=== PATIENT | male | born 1970 | race American Indian/Alaskan Native ===

== ENCOUNTER 2020-04-07 22:28 | Observation (INO) | payer OTHER ==
[2020-04-07] MEDS ORDERED: SODIUM CHLORIDE 0.9% 1000 ML 1,000 ML IV ONE (23:14)
[2020-04-07] MEDS ORDERED: ONDANSETRON 4 MG/2 ML INJ IV ONE (23:14)
[2020-04-07] MEDS ORDERED: KETOROLAC 30 MG/1 ML INJ IV ONE (23:14)
[2020-04-07 23:36] LABS: Bilirubin,Urine NEG (Negative); Blood,Urine NEG (Negative); Color,Urine Yellow (Yellow); Mucus,Urine FEW /HPF; Protein,Urine <15 mg/dL mg/dL (Negative)
--- NOTE | 2020-04-07 23:48 | Event Note ---
ED Screening Note Date of service: 04/07/20 Time: 11:30 ED Screening Note: 49 yr old male presents to ED with c/o Lower abdominal pain x 2 weeks. He states his lower abd pain is worse when he urinates. He reports nausea today. He denies any diarrhea, bloody stool, constipation, hematuria, dysuria, testicular pain or swelling, fever or chills. He also c/o rash to trunk x 1 mth. This initial assessment/diagnostic orders/clinical plan/treatment(s) is/are subject to change based on patients health status, clinical progression and re- assessment by fellow clinical providers in the ED. Further treatment and workup at subsequent clinical providers discretion. Patient/guardian urged not to elope from the ED as their condition may be serious if not clinically assessed and managed. Initial orders include: CBC, CMP, lipase, magnesium, UA, CT
[2020-04-07 23:52] LABS: Alanine Aminotransferase 9 units/L (7-56); Albumin 3.7 g/dL (3.9-5); BUN/Creatinine Ratio 15; Blood Urea Nitrogen 12 mg/dL (9-20); Calcium 8.7 mg/dL (8.4-10.2); Hemolysis Index 4
[2020-04-07 23:57] LABS: Basophils # (Auto) 0.1 K/mm3 (0.0-0.1); Basophils % (Auto) 0.7 % (0.0-1.8); Eosinophils # (Auto) 0.3 K/mm3 (0.0-0.4); Eosinophils % (Auto) 4.6 % (0.0-4.3); Hematocrit 35.5 % (35.5-45.6); Hemoglobin 11.9 gm/dl (11.8-15.2); Lymphocytes # (Auto) 1.5 K/mm3 (1.2-5.4); Lymphocytes % (Auto) 20.7 % (13.4-35.0); Mean Corpuscular HGB Conc 34 % (32-34); Mean Corpuscular Volume 86 fl (84-94); Monocytes # (Auto) 0.3 K/mm3 (0.0-0.8); Monocytes % (Auto) 4.3 % (0.0-7.3); Platelet Count 235 K/mm3 (140-440); Red Blood Count 4.12 M/mm3 (3.65-5.03); Red Cell Distribution Width 14.2 % (13.2-15.2)
--- NOTE | 2020-04-08 00:47 | Cat Scan Report ---
CT ABDOMEN AND PELVIS WITH CONTRAST HISTORY: Lower quadrant abdominal pain COMPARISON: None TECHNIQUE: Routine abdominal and pelvic CT exam performed following intravenous contrast administrat ion.. All CT scans at this location are performed using CT dose reduction for ALARA by means of autom ated exposure control. FINDINGS: CT ABDOMEN: Lung Bases: No significant abnormality. Liver: Tiny areas of peripheral hyperattenuation in the lateral right hepatic lobe likely indicate tr ansient hepatic attenuation alterations. Biliary: No significant abnormality. Spleen: No significant abnormality. Unenlarged. Pancreas: No significant abnormality. Adrenals: No significant abnormality. Kidneys: No acute findings. 2 cm simple cyst in the left kidney. Lymphatics: No lymphadenopathy. Vasculature: No significant abnormality. Bowel/Peritoneum: There is focal wall thickening and inflammatory change involving the mid sigmoid co regina, which likely indicates diverticulitis. The inflammatory change extends to the dome of the bladde r. There is also narrowing of the colonic lumen at the level of the wall thickening. Normal appendix. CT PELVIC: : No significant abnormality. Lymphatics: No lymphadenopathy. Osseous Structures: No aggressive appearing osseous lesions. Additional Findings: None IMPRESSION: 1. There is focal inflammatory change with associated wall thickening of the mid sigmoid colon as wel l as luminal narrowing. This most likely indicates diverticulitis. The area of inflammation extends t o the bladder dome and I am concerned about possible early development of a colovesicular fistula, al though there is no air in the bladder to suggest that the fistula is completed. Additionally, given t he significant wall thickening and luminal narrowing, I am also concerned that this could potentially indicate an underlying colonic mass. Once the patient has been treated for diverticulitis, follow-up colonoscopy should be considered to evaluate for underlying colonic mass. Signer Name: Alfonso Root MD Signed: 04/08/2020 12:42 AM Workstation Name: [employer]
[2020-04-08] MEDS ORDERED: metroNIDAZOLE/NS 500 MG/100 ML 500 MG/100 ML BAG IV ONE (00:53)
[2020-04-08] MEDS ORDERED: PIPERACIL/TAZOBACTA 4.5/NS 100 4.5 GM/100 ML VIAL IV ONE (00:53)
--- NOTE | 2020-04-08 00:56 | Emergency Department Report ---
HPI - General Chief Complaint: Abdominal Pain Time Seen by Provider: 04/07/20 22:53 - HPI HPI: This is a 49-year-old -[place] male presents to the emergency department with a complaint of left lower quadrant abdominal pain, as well as some pelvic pain, that has been going on for the past week. He has been having abdominal cramping as well. He denies any fever, nausea, vomiting, diarrhea, constipation, rectal bleeding. The patient says that he does have the lower abdominal and pelvic pain when he starts to urinate and as he stops urinating. He denies any pain while urinating or any difficulty with urinating. He denies any pain in the penis or any penile discharge. He has not taken anything for symptoms prior to presentation. He has a history of diverticulitis and HIV. He does not have a local primary care physician or infectious disease physician and therefore is not on any HIV meds at this time. ED Past Medical Hx - Past Medical History Previous Medical History?: Yes Hx HIV: Yes Additional medical history: diverticulitis - Surgical History Past Surgical History?: No - Social History Smoking Status: Current Every Day Smoker Substance Use Type: None ED Review of Systems ROS: Stated complaint: ABD PAIN Other details as noted in HPI Comment: All other systems reviewed and negative Constitutional: denies: chills, fever Eyes: denies: eye pain, vision change ENT: denies: ear pain, throat pain Respiratory: denies: cough, shortness of breath Cardiovascular: denies: chest pain, palpitations Gastrointestinal: abdominal pain. denies: nausea, vomiting Genitourinary: denies: hematuria, discharge Musculoskeletal: denies: back pain, arthralgia Skin: denies: rash, lesions Neurological: denies: headache, weakness Physical Exam - Physical Exam Vital Signs: Vital Signs 04/07/20 22:48 Temperature 98.5 F Pulse Rate 74 Respiratory 17 Rate Blood Pressure 115/78 O2 Sat by Pulse 98 Oximetry Physical Exam: GENERAL: The patient is well-developed well-nourished. HENT: Normocephalic. Atraumatic. Patient has moist mucous membranes. EYES: Extraocular motions are intact. NECK: Supple. Trachea is midline. CHEST/LUNGS: Clear to auscultation. There is no respiratory distress noted. HEART/CARDIOVASCULAR: Regular. There is no tachycardia. There is no murmur. ABDOMEN: Abdomen is soft. There is left lower quadrant abdominal tenderness to palpation. No guarding. No peritoneal signs with heel strike. Patient has normal bowel sounds. There is no abdominal distention. SKIN: Skin is warm and dry. NEURO: The patient is awake, alert, and oriented. The patient is cooperative. Normal speech. MUSCULOSKELETAL: There is no tenderness or deformity. There is no limitation range of motion. BACK: No CVA tenderness to palpation. ED Course Vital Signs 04/07/20 22:48 Temperature 98.5 F Pulse Rate 74 Respiratory 17 Rate Blood Pressure 115/78 O2 Sat by Pulse 98 Oximetry - Pulse Oximetry Interpretation Digit-Finger Initial Pulse Oximetry Readin O2 Sat by Pulse Oximetry: 98 Actions Taken: none ED Medical Decision Making - Lab Data Result diagrams: 04/07/20 23:18 04/07/20 23:18 Lab Results 04/07/20 04/07/20 04/07/20 Range/Units 23:18 23:18 23:20 WBC 7.1 (4.5-11.0) K/mm3 RBC 4.12 (3.65-5.03) M/mm3 Hgb 11.9 (11.8-15.2) gm/dl Hct 35.5 (35.5-45.6) % MCV 86 (84-94) fl MCH 29 (28-32) pg MCHC 34 (32-34) % RDW 14.2 (13.2-15.2) % Plt Count 235 (140-440) K/mm3 Lymph % (Auto) 20.7 (13.4-35.0) % [place] % (Auto) 4.3 (0.0-7.3) % Eos % (Auto) 4.6 H (0.0-4.3) % Baso % (Auto) 0.7 (0.0-1.8) % Lymph # (Auto) 1.5 (1.2-5.4) K/mm3 [place] # (Auto) 0.3 (0.0-0.8) K/mm3 Eos # (Auto) 0.3 (0.0-0.4) K/mm3 Baso # (Auto) 0.1 (0.0-0.1) K/mm3 Seg Neutrophils % 69.7 (40.0-70.0) % Seg Neutrophils # 4.9 (1.8-7.7) K/mm3 Sodium 137 (137-145) mmol/L Potassium 4.1 (3.6-5.0) mmol/L Chloride 102.2 (98-107) mmol/L Carbon Dioxide 26 (22-30) mmol/L Anion Gap 13 mmol/L BUN 12 (9-20) mg/dL Creatinine 0.8 (0.8-1.3) mg/dL Estimated GFR > 60 ml/min BUN/Creatinine Ratio 15 % Glucose 88 (75-100) mg/dL Calcium 8.7 (8.4-10.2) mg/dL Total Bilirubin 0.20 (0.1-1.2) mg/dL AST 13 (5-40) units/L ALT 9 (7-56) units/L Alkaline Phosphatase 66 (35-129) units/L Total Protein 6.8 (6.3-8.2) g/dL Albumin 3.7 L (3.9-5) g/dL Albumin/Globulin Ratio 1.2 % Lipase 25 (13-60) units/L Urine Color Yellow (Yellow) Urine Turbidity Clear (Clear) Urine pH 6.0 (5.0-7.0) Ur Specific [place] 1.021 (1.003-1.030) Urine Protein <15 mg/dl (Negative) mg/dL Urine Glucose (UA) Neg (Negative) mg/dL Urine Ketones Neg (Negative) mg/dL Urine Blood Neg (Negative) Urine Nitrite Neg (Negative) Urine Bilirubin Neg (Negative) Urine Urobilinogen 2.0 (<2.0) mg/dL Ur Leukocyte Esterase Neg (Negative) Urine WBC (Auto) 1.0 (0.0-6.0) /HPF Urine RBC (Auto) 1.0 (0.0-6.0) /HPF Urine Mucus Few /HPF - Radiology Data Radiology results: report reviewed CT ABDOMEN AND PELVIS WITH CONTRAST HISTORY: Lower quadrant abdominal pain COMPARISON: None TECHNIQUE: Routine abdominal and pelvic CT exam performed following intravenous contrast administration.. All CT scans at this location are performed using CT dose reduction for ALARA by means of automated exposure control. FINDINGS: CT ABDOMEN: Lung Bases: No significant abnormality. Liver: Tiny areas of peripheral hyperattenuation in the lateral right hepatic lobe likely indicate transient hepatic attenuation alterations. Biliary: No significant abnormality. Spleen: No significant abnormality. Unenlarged. Pancreas: No significant abnormality. Adrenals: No significant abnormality. Kidneys: No acute findings. 2 cm simple cyst in the left kidney. Lymphatics: No lymphadenopathy. Vasculature: No significant abnormality. Bowel/Peritoneum: There is focal wall thickening and inflammatory change involving the mid sigmoid colon, which likely indicates diverticulitis. The inflammatory change extends to the dome of the bladder. There is also narrowing of the colonic lumen at the level of the wall thickening. Normal appendix. CT PELVIC: : No significant abnormality. Lymphatics: No lymphadenopathy. Osseous Structures: No aggressive appearing osseous lesions. Additional Findings: None IMPRESSION: 1. There is focal inflammatory change with associated wall thickening of the mid sigmoid colon as well as luminal narrowing. This most likely indicates diverticulitis. The area of inflammation extends to the bladder dome and I am concerned about possible early development of a colovesicular fistula, although there is no air in the bladder to suggest that the fistula is completed. Additionally, given the significant wall thickening and luminal narrowing, I am also concerned that this could potentially indicate an underlying colonic mass. Once the patient has been treated for diverticulitis, follow-up colonoscopy should be considered to evaluate for underlying colonic mass. - Medical Decision Making This patient presents to the emergency department with a complaint of left lower quadrant abdominal pain that has been going on for the past week. The patient also says that he had some discomfort when starting to urinate and stopping his urination. On examination he does have some reproducible left lower quadrant abdominal tenderness to palpation. The abdomen is soft, nondistended and nontoxic in appearance. Patient's labs have been unremarkable thus far including CBC, metabolic panel, lipase and urinalysis. A CT scan of the abdomen and pelvis with IV contrast was performed. The results show an area of the mid sigmoid that appears consistent with diverticulitis. Also concerning is the radiologist report that there is possibly an incomplete colovesicular fistula, and with some narrowing within the sigmoid colon that there could also potentially be an underlying colonic mass. For these reasons the patient will be admitted to the hospital for further evaluation and treatment and was accepted for admission by the hospitalist, Dr. Ramos. Critical Care Time: No Critical care attestation.: If time is entered above; I have spent that time in minutes in the direct care of this critically ill patient, excluding procedure time. ED Disposition Clinical Impression: Diverticulitis, Abnormal CT of the abdomen, History of HIV infection Disposition: -09 OP ADMIT IP TO THIS HOSP Is pt being admited?: Yes Condition: Fair Time of Disposition: 01:08
--- NOTE | 2020-04-08 01:58 | History and Physical Report ---
History of Present Illness Date of examination: 04/08/20 Date of admission: 04/08/20 01:08 Chief complaint: Abdominal pain History of present illness: This is a 49-year-old -[place] male presents to the emergency department with a complaint of left lower quadrant abdominal pain, as well as some pelvic pain, that has been going on for the past week. He has been having abdominal cramping as well. He denies any fever, nausea, vomiting, diarrhea, constipat ion, rectal bleeding. The patient says that he does have the lower abdominal and pelvic pain when he starts to urinate and as he stops urinating. He denies any pain while urinating or any difficulty with urinating. He denies any pain in the penis or any penile discharge. He has not taken anything for symptoms prior to presentation. He has a history of diverticulitis and HIV. He does not have a local primary care physician or infectious disease physician and therefore is not on any HIV meds at this time. ED work-up does WBC 7.1, hemoglobin 11.9, platelet 235, sodium 137, potassium 4.1, creatinine 0.[address] of the abdomen done reviewed Focal inflammatory changes with association of wall thickening of mid sigmoid colon indicating diverticulitis Patient seen at the bedside alert and oriented x3 patient reported abdominal pain. Pain level 9/10 I reviewed patient medical record, vital signs and lab values. GI consulted will follow up with plan of care Past History Past Medical History: HIV/AIDS Past Surgical History: No surgical history Social history: smoking, other (lives with a partiner) Medications and Allergies Allergies Allergy/AdvReac Type Severity Reaction Status Date / Time No Known Allergies Allergy Verified 04/07/20 22:50 Review of Systems Constitutional: anorexia, weakness Ears, nose, mouth and throat: no epistaxis, no bleeding gums Cardiovascular: no dyspnea on exertion, no high blood pressure Respiratory: no congestion Gastrointestinal: abdominal pain, nausea, loss of appetite, heartburn Genitourinary Male: no dysuria Exam - Constitutional Vitals: Temp Pulse Resp BP Pulse Ox 98.5 F 74 17 115/78 98 04/07/20 22:48 04/07/20 22:48 04/07/20 22:48 04/07/20 22:48 04/07/20 22:48 General appearance: Present: mild distress, well-nourished - EENT Eyes: Present: PERRL ENT: hearing intact, clear oral mucosa - Neck Neck: Present: supple, normal ROM - Respiratory Respiratory effort: normal Respiratory: bilateral: CTA - Cardiovascular Heart rate: 74 Heart Sounds: Present: S1 & S2. Absent: rub, click - Extremities Extremities: pulses symmetrical, No edema Peripheral Pulses: within normal limits - Abdominal General gastrointestinal: Present: soft, non-tender, non-distended, normal bowel sounds Male genitourinary: Present: normal - Integumentary Integumentary: Present: clear, warm, dry - Musculoskeletal Musculoskeletal: gait normal, strength equal bilaterally - Psychiatric Psychiatric: appropriate mood/affect, intact judgment & insight, cooperative - Neurologic Neurologic: CNII-XII intact, moves all extremities - Allied Health Allied health notes reviewed: nursing Results - Labs CBC & Chem 7: 04/07/20 23:18 04/07/20 23:18 Labs: Abnormal lab results 04/07/20 04/07/20 Range/Units 23:18 23:18 Eos % (Auto) 4.6 H (0.0-4.3) % Albumin 3.7 L (3.9-5) g/dL Assessment and Plan - Patient Problems (1) Abnormal CT of the abdomen Current Visit: Yes Status: Acute Plan to address problem: CT positive for inflammatory changes and diverticulitis Patient started on antibiotic and IV hydration. (2) Diverticulitis Current Visit: Yes Status: Acute Plan to address problem: Continue antibiotic Flagyl and Levaquin GI consulted follow-up with plan of care (3) History of HIV infection Current Visit: Yes Status: Acute Plan to address problem: Patient has history of HIV Discussed medication compliance and follow-up appointment Patient voiced understanding (4) Tobacco abuse Current Visit: Yes Status: Acute Plan to address problem: Discussed tobacco use cessation
[2020-04-08] MEDS ORDERED: ALUM-MAG HYDROXIDE-SIMETHICONE 200-200-20MG/5ML ORAL LIQD 30 ML PO PRN (01:59)
[2020-04-08] MEDS ORDERED: METOCLOPRAMIDE 10 MG/2 ML INJ IV PRN (01:59)
[2020-04-08] MEDS ORDERED: ONDANSETRON 4 MG/2 ML INJ IV PRN (01:59)
[2020-04-08] MEDS ORDERED: ACETAMINOPHEN 325 MG TAB PO PRN (01:59)
[2020-04-08] MEDS ORDERED: SENNOSIDES 8.6 MG TAB PO PRN (01:59)
[2020-04-08] MEDS ORDERED: MAGNESIUM HYDROXIDE (MOM) ORAL LIQD UDC PO PRN (01:59)
[2020-04-08] MEDS ORDERED: traZODone 50 MG TAB PO PRN (02:03)
[2020-04-08] MEDS ORDERED: traMADol 50 MG TAB PO PRN (02:03)
[2020-04-08] MEDS ORDERED: ENOXAPARIN 30 MG/0.3 ML INJ SUB-Q SCH (10:00)
[2020-04-08] MEDS ORDERED: PIPERACIL/TAZOBACTA 4.5/NS 100 4.5 GM/100 ML VIAL IV SCH (10:00)
[2020-04-08] MEDS: metroNIDAZOLE/NS 500 MG/100 ML 500 MG/100 ML BAG IV SCH ×2 (10:13→17:56)
[2020-04-08] MEDS: SODIUM CHLORIDE 0.9% 1000 ML 1,000 ML IV SCH ×2 (10:21→21:17)
--- NOTE | 2020-04-08 11:18 | Progress Note ---
Assessment and Plan Assessment and plan: This is a 49-year-old -[place] male presents to the emergency department with a complaint of left lower quadrant abdominal pain, as well as some pelvic pain, that has been going on for the past week. He has been having abdominal cramping as well. He denies any fever, nausea, vomiting, diarrhea, constipation, rectal bleeding. The patient says that he does have the lower abdominal and pelvic pain when he starts to urinate and as he stops urinating. He denies any pain while urinating or any difficulty with urinating. He denies any pain in the penis or any penile discharge. He has not taken anything for symptoms prior to presentation. He has a history of diverticulitis and HIV. He does not have a local primary care physician or infectious disease physician and therefore is not on any HIV meds at this time. ED work-up does WBC 7.1, hemoglobin 11.9, platelet 235, sodium 137, potassium 4.1, creatinine 0.[address] of the abdomen done reviewed Focal inflammatory changes with association of wall thickening of mid sigmoid colon indicating diverticulitis Patient seen at the bedside alert and oriented x3 patient reported abdominal pain. Pain level 9/10 I reviewed patient medical record, vital signs and lab values. GI consulted will follow up with plan of care Hospital course 3/2. On IV antibiotics. CT abdomen suggestive of diverticulitis with possible colovesicular fistula. GI consulted. Patient stated to have anemia. Denies any nausea or vomiting. Advance diet as tolerated today. Problems #Diverticulitis with possible colovesicular fistula Continue IV hydration Continue IV antibiotics GI consulted Patient has had colonoscopy in the past-2 years ago. Plan for colonoscopy after 6 to 8 weeks Advance diet as tolerated #History of HIV medication Patient on any medications Needs to follow-up with her primary medical doctor infectious disease specialist Referral placed #Tobacco abuse Tobacco cessation counseling #DVT prophylaxis-Heparin products Full code History Interval history: Patient seen and examined at bedside this morning GI consulted Advance diet Hospitalist Physical - Physical exam Narrative exam: VITAL SIGNS: Reviewed. GENERAL: Awake HEAD: No signs of head trauma. EYES: Pupils are equal. Extraocular motions intact. MOUTH: Oropharynx is normal. NECK: No adenopathy, no JVD. CHEST: Chest with diminished breath sounds bilaterally. No wheezes, rales, or rhonchi. CARDIAC: normal S1 and S2, without murmurs, gallops, or rubs. ABDOMEN: Soft, non tender and non distended. No rebound or guarding, and no masses palpated. Bowel Sounds normal. MUSCULOSKELETAL: No edema NEUROLOGIC EXAM: Alert and oriented x3. No focal neurologic deficits SKIN: No obvious lesions - Constitutional Vitals: Temp Pulse Resp BP Pulse Ox 98.6 F 53 L 15 126/63 100 04/08/20 08:44 04/08/20 08:44 04/08/20 08:44 04/08/20 08:44 04/08/20 08:44 Results - Labs CBC & Chem 7: 04/07/20 23:18 04/07/20 23:18 Labs: Laboratory Last Values WBC 7.1 K/mm3 (4.5-11.0) 04/07/20 23:18 RBC 4.12 M/mm3 (3.65-5.03) 04/07/20 23:18 Hgb 11.9 gm/dl (11.8-15.2) 04/07/20 23:18 Hct 35.5 % (35.5-45.6) 04/07/20 23:18 MCV 86 fl (84-94) 04/07/20 23:18 MCH 29 pg (28-32) 04/07/20 23:18 MCHC 34 % (32-34) 04/07/20 23:18 RDW 14.2 % (13.2-15.2) 04/07/20 23:18 Plt Count 235 K/mm3 (140-440) 04/07/20 23:18 Lymph % (Auto) 20.7 % (13.4-35.0) 04/07/20 23:18 [place] % (Auto) 4.3 % (0.0-7.3) 04/07/20 23:18 Eos % (Auto) 4.6 % (0.0-4.3) H 04/07/20 23:18 Baso % (Auto) 0.7 % (0.0-1.8) 04/07/20 23:18 Lymph # (Auto) 1.5 K/mm3 (1.2-5.4) 04/07/20 23:18 [place] # (Auto) 0.3 K/mm3 (0.0-0.8) 04/07/20 23:18 Eos # (Auto) 0.3 K/mm3 (0.0-0.4) 04/07/20 23:18 Baso # (Auto) 0.1 K/mm3 (0.0-0.1) 04/07/20 23:18 Seg Neutrophils % 69.7 % (40.0-70.0) 04/07/20 23:18 Seg Neutrophils # 4.9 K/mm3 (1.8-7.7) 04/07/20 23:18 Sodium 137 mmol/L (137-145) 04/07/20 23:18 Potassium 4.1 mmol/L (3.6-5.0) 04/07/20 23:18 Chloride 102.2 mmol/L (98-107) 04/07/20 23:18 Carbon Dioxide 26 mmol/L (22-30) 04/07/20 23:18 Anion Gap 13 mmol/L 04/07/20 23:18 BUN 12 mg/dL (9-20) 04/07/20 23:18 Creatinine 0.8 mg/dL (0.8-1.3) 04/07/20 23:18 Estimated GFR > 60 ml/min 04/07/20 23:18 BUN/Creatinine Ratio 15 % 04/07/20 23:18 Glucose 88 mg/dL (75-100) 04/07/20 23:18 Calcium 8.7 mg/dL (8.4-10.2) 04/07/20 23:18 Total Bilirubin 0.20 mg/dL (0.1-1.2) 04/07/20 23:18 AST 13 units/L (5-40) 04/07/20 23:18 ALT 9 units/L (7-56) 04/07/20 23:18 Alkaline Phosphatase 66 units/L (35-129) 04/07/20 23:18 Total Protein 6.8 g/dL (6.3-8.2) 04/07/20 23:18 Albumin 3.7 g/dL (3.9-5) L 04/07/20 23:18 Albumin/Globulin Ratio 1.2 % 04/07/20 23:18 Lipase 25 units/L (13-60) 04/07/20 23:18 Urine Color Yellow (Yellow) 04/07/20 23:20 Urine Turbidity Clear (Clear) 04/07/20 23:20 Urine pH 6.0 (5.0-7.0) 04/07/20 23:20 Ur Specific [place] 1.021 (1.003-1.030) 04/07/20 23:20 Urine Protein <15 mg/dl mg/dL (Negative) 04/07/20 23:20 Urine Glucose (UA) Neg mg/dL (Negative) 04/07/20 23:20 Urine Ketones Neg mg/dL (Negative) 04/07/20 23:20 Urine Blood Neg (Negative) 04/07/20 23:20 Urine Nitrite Neg (Negative) 04/07/20 23:20 Urine Bilirubin Neg (Negative) 04/07/20 23:20 Urine Urobilinogen 2.0 mg/dL (<2.0) 04/07/20 23:20 Ur Leukocyte Esterase Neg (Negative) 04/07/20 23:20 Urine WBC (Auto) 1.0 /HPF (0.0-6.0) 04/07/20 23:20 Urine RBC (Auto) 1.0 /HPF (0.0-6.0) 04/07/20 23:20 Urine Mucus Few /HPF 04/07/20 23:20 Ibanez/IV: Voiding Method Toilet Active Medications - Current Medications Current Medications: Generic Name Dose Route Start Last Admin Trade Name Freq PRN Reason Stop Dose Admin Acetaminophen 650 mg 04/08/20 01:59 Acetaminophen 325 Mg Tab PO Q4H PRN Pain MILD(1-3)/Fever >100.5/BETANCOURT Al Hydrox/Mg Hydrox/Simethicone 30 ml 04/08/20 01:59 Alum-Mag Hydroxide-Simethicone [phone]/5ml Oral Liqd 30 Ml PO Q4H PRN Indigestion Enoxaparin Sodium 40 mg 04/08/20 10:00 Enoxaparin 40 Mg/0.4 Ml Inj SUB-Q QDAY@1000 JOSE Famotidine 20 mg 04/08/20 10:00 Famotidine 20 Mg Tab PO BID JOSE Levofloxacin/Dextrose 750 mg in 150 mls @ 100 mls/hr 04/08/20 07:00 04/08/20 07:33 Levaquin 750mg/150ml IV 100 mls/hr Q24H JOSE Administration Protocol Metronidazole 500 mg in 100 mls @ 100 mls/hr 04/08/20 09:00 04/08/20 10:13 Flagyl 500 Mg/100 Ml IV 100 mls/hr Q8H JOSE Administration Protocol Sodium Chloride 1,000 mls @ 75 mls/hr 04/08/20 07:00 04/08/20 10:21 Nacl 0.9% 1000 Ml IV 75 mls/hr DIRECT JOSE Administration Magnesium Hydroxide 30 ml 04/08/20 01:59 Magnesium Hydroxide (Mom) Oral Liqd Udc PO Q4H PRN Constipation Metoclopramide HCl 10 mg 04/08/20 01:59 Metoclopramide 10 Mg/2 Ml Inj IV Q6H PRN Nausea And Vomiting Ondansetron HCl 4 mg 04/08/20 01:59 Ondansetron 4 Mg/2 Ml Inj IV Q8H PRN Nausea And Vomiting Senna 8.6 mg 04/08/20 01:59 Sennosides 8.6 Mg Tab PO Q12HR PRN Constipation Sodium Chloride 10 ml 04/08/20 10:00 Sodium Chloride 0.9% 10 Ml Flush Syringe IV BID JOSE Sodium Chloride 10 ml 04/08/20 01:59 Sodium Chloride 0.9% 10 Ml Flush Syringe IV PRN PRN LINE FLUSH Tramadol HCl 50 mg 04/08/20 02:03 Tramadol 50 Mg Tab PO Q4H PRN Pain, Moderate (4-6) Trazodone HCl 50 mg 04/08/20 02:03 Trazodone 50 Mg Tab PO HS PRN Insomnia
[2020-04-08] MEDS: ENOXAPARIN 40 MG/0.4 ML INJ SUB-Q SCH (12:40)
[2020-04-08] MEDS: FAMOTIDINE 20 MG TAB PO SCH ×2 (12:40→21:17)
[2020-04-09] MEDS: metroNIDAZOLE/NS 500 MG/100 ML 500 MG/100 ML BAG IV SCH (00:24)
[2020-04-09 06:35] LABS: Basophils % (Auto) 0.5 % (0.0-1.8); Eosinophils # (Auto) 0.3 K/mm3 (0.0-0.4); Hematocrit 33.2 % (35.5-45.6); Hemoglobin 11.3 gm/dl (11.8-15.2); Lymphocytes # (Auto) 1.4 K/mm3 (1.2-5.4); Lymphocytes % (Auto) 30.4 % (13.4-35.0); Mean Corpuscular HGB Conc 34 % (32-34); Mean Corpuscular Volume 86 fl (84-94); Monocytes # (Auto) 0.3 K/mm3 (0.0-0.8); Monocytes % (Auto) 6.6 % (0.0-7.3); Platelet Count 192 K/mm3 (140-440); Red Blood Count 3.88 M/mm3 (3.65-5.03); Red Cell Distribution Width 13.7 % (13.2-15.2)
[2020-04-09 06:49] LABS: Alanine Aminotransferase 8 units/L (7-56); Albumin 3.2 g/dL (3.9-5); Blood Urea Nitrogen 8 mg/dL (9-20); Calcium 7.9 mg/dL (8.4-10.2); Hemolysis Index 0
[2020-04-09 06:52] LABS: BUN/Creatinine Ratio 11
--- NOTE | 2020-04-09 09:35 | Discharge Summary ---
Providers - Providers Date of Admission: 04/08/20 01:08 Date of discharge: 04/09/20 Attending physician: IVETT VILLAGOMEZ 04/08/20 00:58 Consult to Physician [CONS] Routine Comment: Consulting Provider: MIRTA DAVIS Physician Instructions: Reason For Exam: diverticulitis, colovesicular fistula? mass? 04/09/20 08:17 Consult to Physician [CONS] Routine Comment: Consulting Provider: ANDERSON NIEVES Physician Instructions: Reason For Exam: diverticulitis, colovesicular fistula? mass? 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 He has been having abdominal cramping as well. He denies any fever, nausea, vomiting, diarrhea, constipation, rectal bleeding. The patient says that he does have the lower abdominal and pelvic pain when he starts to urinate and as he stops urinating. He denies any pain while urinating or any difficulty with urinating. He denies any pain in the penis or any penile discharge. He has not taken anything for symptoms prior to presentation. He has a history of diverticulitis and HIV. He does not have a local primary care physician or infectious disease physician and therefore is not on any HIV meds at this time. ED work-up does WBC 7.1, hemoglobin 11.9, platelet 235, sodium 137, potassium 4.1, creatinine 0.[address] of the abdomen done reviewed Focal inflammatory changes with association of wall thickening of mid sigmoid colon indicating diverticulitis Patient seen at the bedside alert and oriented x3 patient reported abdominal pain. Pain level 9/10 I reviewed patient medical record, vital signs and lab values. GI consulted will follow up with plan of care Hospital course 3/2. On IV antibiotics. CT abdomen suggestive of diverticulitis with possible colovesicular fistula. GI consulted. Patient stated to have anemia. Denies any nausea or vomiting. Advance diet as tolerated today. He has a history of diverticulitis in the past and last colonoscopy was 2 years ago. He just moved from [place] 04/09. He is tolerating meals. He is very eager to go home. Remains afebrile. Patient has been seen by GI. Discussed with Dr Nieves. No further work up required while inpatient. He will follow up with GI in the office. Will discharge home on PO antibiotics. He agrees with plan Disposition: DC-01 TO HOME OR SELFCARE Time spent for discharge: 39 mins - Discharge Diagnoses (1) Diverticulitis Status: Acute (2) History of HIV infection Status: Acute Comment: Asymptomatic (3) Tobacco abuse Status: Acute Core Measure Documentation - Palliative Care Palliative Care/ Comfort Measures: Not Applicable - Core Measures Any of the following diagnoses?: none Exam - Physical Exam Narrative exam: VITAL SIGNS: Reviewed. GENERAL: Awake HEAD: No signs of head trauma. EYES: Pupils are equal. Extraocular motions intact. MOUTH: Oropharynx is normal. NECK: No adenopathy, no JVD. CHEST: Chest with diminished breath sounds bilaterally. No wheezes, rales, or rhonchi. CARDIAC: normal S1 and S2, without murmurs, gallops, or rubs. ABDOMEN: Soft, non tender and non distended. No rebound or guarding, and no masses palpated. Bowel Sounds normal. MUSCULOSKELETAL: No edema NEUROLOGIC EXAM: Alert and oriented x3. No focal neurologic deficits SKIN: No obvious lesions - Constitutional Vitals: Temp Pulse Resp BP Pulse Ox 97.7 F 72 16 116/63 95 04/09/20 03:35 04/09/20 03:35 04/09/20 03:35 04/09/20 03:35 04/09/20 03:35 Plan Activity: no restrictions Additional Instructions: Continue antibiotics for 8 days. Follow up with GI in the office in 1-2 weeks. Follow up with PCP in 1-2 weeks Follow up with: CHIKIS ALBERT MD [Primary Care Provider] - 7 Days ANDERSON NIEVES MD [Staff Physician] - 7 Days Forms: Discharge Signature Page Prescriptions: Amoxicillin/Potassium Clav [Augmentin 875-125 Tablet] 1 each PO BID 8 Days #16 tablet
[2020-04-09 10:01] VITALS: BP 127/82
[2020-04-09] MEDS: FAMOTIDINE 20 MG TAB PO SCH (10:29)
[2020-04-09] MEDS: ENOXAPARIN 40 MG/0.4 ML INJ SUB-Q SCH (10:33)
--- NOTE | 2020-04-09 13:59 | Consultation ---
REFERRING PHYSICIAN: Rafael Blanchard M.D. INDICATION: Abdominal pain. HISTORY OF PRESENT ILLNESS: The patient is a 49-year-old black male with history of diverticulitis in the past, now being seen for abdominal pain. The patient reports abdominal pain in the lower abdomen radiating to the pelvic area for the last week. He reports some cramping. He denies any fevers or chills. Denies any nausea or vomiting. Denies any diarrhea, constipation, or rectal bleeding. Denies any weight loss. The patient denies any urinary symptoms, especially any ____ as he urinates. The patient subsequently came to the Emergency Room where he had a CT scan showing diverticulitis. He was subsequently admitted and GI consulted. Of note, the patient does have a history of HIV. PAST MEDICAL HISTORY: HIV. MEDICATIONS: Reviewed and updated in chart. ALLERGIES: No known drug allergies. SOCIAL HISTORY: ____. REVIEW OF SYSTEMS: ____. PULMONARY: Denies shortness of breath, cough, or chest pain. GASTROINTESTINAL: Reports lower abdominal pain. All points of 13-point review of systems otherwise negative. PHYSICAL EXAMINATION: VITAL SIGNS: Stable. Temperature of 98.2, pulse 61, respirations 18, blood pressure 115/70. GENERAL: Fairly nourished black male in no acute distress. HEENT: Pupils equal, round, and reactive. PULMONARY: Clear to auscultation bilaterally. CARDIOVASCULAR: Regular rhythm. Normal S1, S2. ABDOMEN: Positive bowel sounds, soft. SKIN: No obvious rashes. LABORATORY DATA: Pertinent for white count of 7.1, hemoglobin and hematocrit of 11.9 and 35.5, platelet count of 254. Chem-7 within normal limits. LFTs within normal limits. CT scan of abdomen and pelvis with contrast performed on 04/08/2020 showed signs of inflammatory changes involving the sigmoid area consistent with diverticulitis, also inflammation of the bladder dome, concerning for possible early colovesicular fistula, although there is no air in the gallbladder seen. ASSESSMENT: This is a 49-year-old black HIV-positive male with a history of diverticulitis in the past, now presents with 1 week of lower abdominal pain and CT scan suggestive of diverticulitis. Of concern is some noted bladder dome inflammation, which may suggest the possibility of ____ fistula. There were no air seen in the bladder. Conservative management as noted below. PLAN: 1. Review CT scan. 2. The patient is already advancing diet to soft and tolerating well. 3. Antibiotics with Cipro and Flagyl IV as ordered. 4. Antiemetics and pain medication per primary team. 5. When the patient is tolerating soft diet, okay to discharge from GI standpoint with consideration for further intervention at that time. 6. No plans for colonoscopy at this time. 7. We will follow. JOB# [id number] CAB/NTS
--- NOTE | 2020-04-09 14:23 | Gastroenterology Progress Note ---
Assessment and Plan GI: pt w/ signs resolving diverticulitis - diet as tolerated - complete po antibiotics as outpt - ok to dc, will sign off Subjective Date of service: 04/09/20 Interval history: - reports doing well, denies GI complaints Objective - Constitutional Vitals: Temp Pulse Resp BP Pulse Ox 98.4 F 58 L 16 127/82 98 04/09/20 09:36 04/09/20 10:00 04/09/20 03:35 04/09/20 09:36 04/09/20 09:36 General appearance: no acute distress - EENT Eyes: PERRL - Respiratory Respiratory: bilateral: CTA - Cardiovascular Rhythm: regular Heart Sounds: Present: S1 & S2 - Gastrointestinal General gastrointestinal: Present: soft, non-tender, non-distended - Labs CBC & Chem 7: 04/09/20 06:15 04/09/20 06:15 Labs: Laboratory Results - last 24 hr 04/09/20 04/09/20 06:15 06:15 WBC 4.7 RBC 3.88 Hgb 11.3 L Hct 33.2 L MCV 86 MCH 29 MCHC 34 RDW 13.7 Plt Count 192 Lymph % (Auto) 30.4 Jewell % (Auto) 6.6 Eos % (Auto) 7.0 H Baso % (Auto) 0.5 Lymph # (Auto) 1.4 Jewell # (Auto) 0.3 Eos # (Auto) 0.3 Baso # (Auto) 0.0 Seg Neutrophils % 55.5 Seg Neutrophils # 2.6 Sodium 139 Potassium 3.9 Chloride 106.8 Carbon Dioxide 24 Anion Gap 12 BUN 8 L Creatinine 0.7 L Estimated GFR > 60 BUN/Creatinine Ratio 11 Glucose 95 Calcium 7.9 L Total Bilirubin 0.20 AST 11 ALT 8 Alkaline Phosphatase 55 Total Protein 5.9 L Albumin 3.2 L Albumin/Globulin Ratio 1.2
== END 2020-04-09 12:10 | disposition home or self-care (01) ==
LOC: ED 22:28 → 4A 04-08 01:08
PROVIDERS: ADMIT Internal Medicine Geriatric Medicine; ATTEND Internal Medicine
DX: K57.92 Diverticulitis of intestine, part unspecified, without perforation or abscess without bleeding (principal); R93.5 Abnormal findings on diagnostic imaging of other abdominal regions, including retroperitoneum; F17.200 Nicotine dependence, unspecified, uncomplicated; Z21 Asymptomatic human immunodeficiency virus [HIV] infection status
CPT/HCPCS: 36415; 74177; 80053; 81001; 83690; 85025; 96361; 96365; 96366; 96367; 96375; 99285; G0378; J1885; J1956; J2405; J2543; J7030; Q9967

== ENCOUNTER 2020-06-30 20:29 | Emergency (ER) | payer SELFPAY ==
[2020-06-30 22:03] LABS: Bilirubin,Urine NEG (Negative); Blood,Urine NEG (Negative); Color,Urine Yellow (Yellow); Mucus,Urine 2+ /HPF; Protein,Urine <15 mg/dL mg/dL (Negative)
--- NOTE | 2020-06-30 23:32 | Event Note ---
ED Screening Note Date of service: 06/30/20 Time: 23:20 ED Screening Note: Patient is a 50 yo AA male with a h/o HIV and chronic recurrent diverticulitis who presents to the ED with complaint of acute onset persistent severe left lower quadrant abdominal pain with nausea for the last 2 weeks intermittently, worse in the last 2 days. Patient states that he has not been able to eat anything because of worsening pain in the left lower quadrant, and which gets worse whenever he voids urine or has a bowel movement. Patient denies fever, chills, vomiting, diarrhea, constipation, back pain, dysuria, urinary frequency and urgency, testicular pain, penile discharge, chest pain or shortness of br eath and cough. This initial assessment/diagnostic orders/clinical plan/treatment(s) is/are subject to change based on patients health status, clinical progression and re- assessment by fellow clinical providers in the ED. Further treatment and workup at subsequent clinical providers discretion. Patient/guardian urged not to elope from the ED as their condition may be serious if not clinically assessed and managed. Initial orders include: CBC, CMP, lipase, UA, abdomen pelvis CT scan with contrast
[2020-06-30 23:50] LABS: Basophils % (Auto) 0.4 % (0.0-1.8); Eosinophils # (Auto) 0.5 K/mm3 (0.0-0.4); Eosinophils % (Auto) 8.5 % (0.0-4.3); Hematocrit 36.9 % (35.5-45.6); Hemoglobin 12.6 gm/dl (11.8-15.2); Lymphocytes # (Auto) 1.2 K/mm3 (1.2-5.4); Lymphocytes % (Auto) 20.3 % (13.4-35.0); Mean Corpuscular HGB Conc 34 % (32-34); Mean Corpuscular Volume 85 fl (84-94); Monocytes # (Auto) 0.3 K/mm3 (0.0-0.8); Platelet Count 236 K/mm3 (140-440); Red Blood Count 4.32 M/mm3 (3.65-5.03); Red Cell Distribution Width 15.2 % (13.2-15.2)
[2020-06-30 23:56] LABS: Alanine Aminotransferase 7 units/L (7-56); Blood Urea Nitrogen 14 mg/dL (9-20); Calcium 8.7 mg/dL (8.4-10.2); Hemolysis Index 4
[2020-06-30 23:57] LABS: BUN/Creatinine Ratio 20
[2020-07-01] MEDS ORDERED: ONDANSETRON 4 MG/2 ML INJ IV ONE (00:46)
[2020-07-01] MEDS ORDERED: MORPHINE 4 MG/1 ML INJ IV ONE (00:46)
[2020-07-01] MEDS ORDERED: SODIUM CHLORIDE 0.9% 1000 ML 1,000 ML IV ONE (00:46)
--- NOTE | 2020-07-01 01:33 | Emergency Department Report ---
ED General Adult HPI - General Chief complaint: Abdominal Pain Stated complaint: ABDOMINAL PAIN PUI?: No Time Seen by Provider: 07/01/20 01:31 Source: patient, RN notes reviewed, old records reviewed Mode of arrival: Ambulatory Limitations: No Limitations - History of Present Illness Initial comments: The patient was evaluated in the emergency department for symptoms described in the history of present illness. He/she was evaluated in the context of the global COVID-19 pandemic, which necessitated consideration that the patient might be at risk for infection with the virus that causes COVID-19. Institutional protocols and algorithms that pertain to the evaluation of patients at risk for COVID-19 are in a state of rapid change based on information released by regulatory bodies including the CDC and federal and state organizations. These policies and algorithms were followed during the patient's care in the emergency department. Please note that these policies, procedures and recommendations changed on a rapid basis. The patient is a 50-year-old gentleman. He is not known to myself previously. He was admitted to this hospital a few months ago for possible diverticulitis. At that time, he had a CT scan of his abdomen pelvis, which suggested sigmoid abnormality, and possible communication with the bladder. He was treated with antibiotics and discharged. Patient states his pain improved, and now has gotten worse over the past 3 weeks. The pain is suprapubic and left lower quadrant. It increases with palpation. It decreases with left. He has no testicular pain, dyschezia, or peroneum pain, and he reports he has been sexually celibate for 7 years. However, he reports urinary discomfort at the start of urination, and at the end of urination. However, he denies air bubbles and feculent material in his urine sample/urine movement. He denies headache, neck pain, chest pain, shortness of breath, Covid symptomatology, hematemesis and bright red blood per rectum. He furthermore indicates that he had a colonoscopy at the age of 47 which was "okay, and he did not show anything." In the emergency room, his pain was much improved with administration of morphine. -: Gradual, week(s) Radiation: abdomen Quality: aching Consistency: constant Improves with: movement, rest Worsens with: movement - Related Data Previous Rx's Medication Instructions Recorded Last Taken Type Amoxicillin/Potassium Clav 1 each PO BID 8 Days #16 tablet 04/09/20 Unknown Rx [Augmentin 875-125 Tablet] Acetaminophen [Non-Aspirin Extra 500 mg PO Q6HR PRN #30 tablet 07/01/20 Unknown Rx Strength] Morphine Sulfate [Morphine Sulfate 7.5 mg PO Q6HR PRN #10 tablet 07/01/20 Unknown Rx IR] Ondansetron [Zofran Odt] 4 mg PO Q8HR PRN #20 tab.rapdis 07/01/20 Unknown Rx Allergies Allergy/AdvReac Type Severity Reaction Status Date / Time No Known Allergies Allergy Verified 04/07/20 22:50 ED Review of Systems ROS: Stated complaint: ABDOMINAL PAIN Other details as noted in HPI Constitutional: denies: fever Eyes: denies: vision change ENT: denies: epistaxis Respiratory: denies: cough Cardiovascular: denies: chest pain Gastrointestinal: abdominal pain Genitourinary: as per HPI, dysuria Musculoskeletal: denies: back pain Neurological: denies: weakness Hematological/Lymphatic: denies: easy bleeding ED Past Medical Hx - Past Medical History Previous Medical History?: No Hx HIV: Yes Additional medical history: diverticulitis - Surgical History Past Surgical History?: No - Social History Smoking Status: Never Smoker Substance Use Type: None - Medications Home Medications: Home Medications Medication Instructions Recorded Confirmed Last Taken Type Amoxicillin/Potassium Clav 1 each PO BID 8 Days #16 tablet 04/09/20 Unknown Rx [Augmentin 875-125 Tablet] Acetaminophen [Non-Aspirin Extra 500 mg PO Q6HR PRN #30 tablet 07/01/20 Unknown Rx Strength] Morphine Sulfate [Morphine Sulfate 7.5 mg PO Q6HR PRN #10 tablet 07/01/20 Unknown Rx IR] Ondansetron [Zofran Odt] 4 mg PO Q8HR PRN #20 tab.rapdis 07/01/20 Unknown Rx ED Physical Exam - General Limitations: No Limitations, Other (During the entire physical examination, I am chaperoned by Julia Gallegos) General appearance: alert, in no apparent distress - Head Head exam: Present: atraumatic, normocephalic - Eye Eye exam: Present: normal appearance, EOMI. Absent: nystagmus - ENT ENT exam: Present: normal exam, normal orophraynx, mucous membranes moist, normal external ear exam - Neck Neck exam: Present: normal inspection, full ROM. Absent: tenderness, meningismu s - Respiratory Respiratory exam: Present: normal lung sounds bilaterally. Absent: respiratory distress, wheezes, rales, rhonchi, stridor, decreased breath sounds - Cardiovascular Cardiovascular Exam: Present: regular rate, normal rhythm, normal heart sounds. Absent: bradycardia, tachycardia, irregular rhythm, systolic murmur, diastolic murmur, rubs, gallop - GI/Abdominal GI/Abdominal exam: Present: soft, tenderness, guarding (Initial voluntary guarding in the left lower quadrant), normal bowel sounds. Absent: distended, rebound, rigid, pulsatile mass - Rectal Rectal exam: Present: normal inspection, other (There is no ecchymosis, te nderness, or crepitus noted) - exam: Present: normal inspection, other (There is normal testicular lie. There is normal cremasteric reflex. There is no testicular tenderness. There is no testicular swelling). Absent: testicular tenderness External exam: Present: normal external exam - Extremities Exam Extremities exam: Present: normal inspection, full ROM, other (2+ pulses noted in the bilateral upper and lower extremities. There is no palpable cord. negative Homans sign. Muscular compartments are soft. The pelvis is stable.). Absent: pedal edema, calf tenderness - Back Exam Back exam: Present: normal inspection, full ROM. Absent: tenderness, CVA tenderness (R), CVA tenderness (L), paraspinal tenderness, vertebral tenderness - Neurological Exam Neurological exam: Present: alert, oriented X3, other (No facial droop. Tongue midline. Extraocular movements intact bilaterally. Facial sensation intact to light touch in V1, V2, V3 distribution bilaterally. 5 and a 5 strength in 4 extremities. Sensation intact to light touch in 4 extremities.). Absent: motor sensory deficit - Psychiatric Psychiatric exam: Present: anxious - Skin Skin exam: Present: warm, dry, intact, normal color. Absent: rash ED Course Vital Signs 06/30/20 06/30/20 07/01/20 21:35 21:36 01:45 Temperature 98.7 F 98.4 F Pulse Rate 82 72 Respiratory 16 12 Rate Blood Pressure 93/64 116/79 Blood Pressure [Right] O2 Sat by Pulse 97 97 Oximetry 07/01/20 07/01/20 07/01/20 01:49 02:01 02:15 Temperature 98.1 F Pulse Rate 67 64 62 Respiratory 15 26 H 26 H Rate Blood Pressure 111/80 109/68 Blood Pressure 116/79 [Right] O2 Sat by Pulse 97 97 98 Oximetry 07/01/20 07/01/20 02:31 02:45 Temperature Pulse Rate 73 67 Respiratory Rate Blood Pressure 108/75 110/73 Blood Pressure [Right] O2 Sat by Pulse 96 97 Oximetry - Reevaluation(s) Reevaluation #1: 07/01/20 03:01 I had extensive discussion with the patient regarding his CT scan findings and need to follow-up. In addition, we discussed the patient's current HIV status. He has been off his antiviral medications for about 2 years, and has been in [place] for about 1 year. He was previously on Triumeq. He does not know his previous CD4 count or viral load, but to the best of his recollection, he denies a history of AIDS defining illnesses. He reports he is going to follow-up in the next couple days as an outpatient with a local infectious disease group. However, I did extensively discussed patient's options for outpatient maintenance, including local infectious disease clinic, [facility] infectious disease, as well as the [facility] department. Patient was strongly encouraged to resume antiviral therapy, as uncontrolled HIV may be a contributing factor to this patient's presentation. He did articulate understanding. ED Medical Decision Making - Lab Data Result diagrams: 06/30/20 23:11 06/30/20 23:11 Vital Signs (72 hours) 06/30/20 21:36 Temperature 98.4 F Lab Results 06/30/20 06/30/20 06/30/20 Range/Units 23:11 23:11 23:11 WBC 6.0 (4.5-11.0) K/mm3 RBC 4.32 (3.65-5.03) M/mm3 Hgb 12.6 (11.8-15.2) gm/dl Hct 36.9 (35.5-45.6) % MCV 85 (84-94) fl MCH 29 (28-32) pg MCHC 34 (32-34) % RDW 15.2 (13.2-15.2) % Plt Count 236 (140-440) K/mm3 Lymph % (Auto) 20.3 (13.4-35.0) % Jay % (Auto) 5.0 (0.0-7.3) % Eos % (Auto) 8.5 H (0.0-4.3) % Baso % (Auto) 0.4 (0.0-1.8) % Lymph # (Auto) 1.2 (1.2-5.4) K/mm3 Jay # (Auto) 0.3 (0.0-0.8) K/mm3 Eos # (Auto) 0.5 H (0.0-0.4) K/mm3 Baso # (Auto) 0.0 (0.0-0.1) K/mm3 Seg Neutrophils % 65.8 (40.0-70.0) % Seg Neutrophils # 4.0 (1.8-7.7) K/mm3 Sodium 136 L (137-145) mmol/L Potassium 3.9 (3.6-5.0) mmol/L Chloride 101.3 (98-107) mmol/L Carbon Dioxide 28 (22-30) mmol/L Anion Gap 11 mmol/L BUN 14 (9-20) mg/dL Creatinine 0.7 L (0.8-1.3) mg/dL Estimated GFR > 60 ml/min BUN/Creatinine Ratio 20 % Glucose 93 (75-100) mg/dL Calcium 8.7 (8.4-10.2) mg/dL Total Bilirubin 0.20 (0.1-1.2) mg/dL AST 12 (5-40) units/L ALT 7 (7-56) units/L Alkaline Phosphatase 83 (35-129) units/L Total Protein 7.2 (6.3-8.2) g/dL Albumin 4.0 (3.9-5) g/dL Albumin/Globulin Ratio 1.3 % Lipase 33 (13-60) units/L Urine Color (Yellow) Urine Turbidity (Clear) Urine pH (5.0-7.0) Ur Specific Lind[place] (1.003-1.030) Urine Protein (Negative) mg/dL Urine Glucose (UA) (Negative) mg/dL Urine Ketones (Negative) mg/dL Urine Blood (Negative) Urine Nitrite (Negative) Urine Bilirubin (Negative) Urine Urobilinogen (<2.0) mg/dL Ur Leukocyte Esterase (Negative) Urine WBC (Auto) (0.0-6.0) /HPF Urine RBC (Auto) (0.0-6.0) /HPF Urine Mucus /HPF 06/30/20 Range/Units Unknown WBC (4.5-11.0) K/mm3 RBC (3.65-5.03) M/mm3 Hgb (11.8-15.2) gm/dl Hct (35.5-45.6) % MCV (84-94) fl MCH (28-32) pg MCHC (32-34) % RDW (13.2-15.2) % Plt Count (140-440) K/mm3 Lymph % (Auto) (13.4-35.0) % Jay % (Auto) (0.0-7.3) % Eos % (Auto) (0.0-4.3) % Baso % (Auto) (0.0-1.8) % Lymph # (Auto) (1.2-5.4) K/mm3 Jay # (Auto) (0.0-0.8) K/mm3 Eos # (Auto) (0.0-0.4) K/mm3 Baso # (Auto) (0.0-0.1) K/mm3 Seg Neutrophils % (40.0-70.0) % Seg Neutrophils # (1.8-7.7) K/mm3 Sodium (137-145) mmol/L Potassium (3.6-5.0) mmol/L Chloride (98-107) mmol/L Carbon Dioxide (22-30) mmol/L Anion Gap mmol/L BUN (9-20) mg/dL Creatinine (0.8-1.3) mg/dL Estimated GFR ml/min BUN/Creatinine Ratio % Glucose (75-100) mg/dL Calcium (8.4-10.2) mg/dL Total Bilirubin (0.1-1.2) mg/dL AST (5-40) units/L ALT (7-56) units/L Alkaline Phosphatase (35-129) units/L Total Protein (6.3-8.2) g/dL Albumin (3.9-5) g/dL Albumin/Globulin Ratio % Lipase (13-60) units/L Urine Color Yellow (Yellow) Urine Turbidity Clear (Clear) Urine pH 5.0 (5.0-7.0) Ur Specific Lind[place] 1.027 (1.003-1.030) Urine Protein <15 mg/dl (Negative) mg/dL Urine Glucose (UA) Neg (Negative) mg/dL Urine Ketones Neg (Negative) mg/dL Urine Blood Neg (Negative) Urine Nitrite Neg (Negative) Urine Bilirubin Neg (Negative) Urine Urobilinogen 4.0 (<2.0) mg/dL Ur Leukocyte Esterase Neg (Negative) Urine WBC (Auto) 1.0 (0.0-6.0) /HPF Urine RBC (Auto) 1.0 (0.0-6.0) /HPF Urine Mucus 2+ /HPF Lab Results 06/30/20 06/30/20 06/30/20 Range/Units 23:11 23:11 23:11 WBC 6.0 (4.5-11.0) K/mm3 RBC 4.32 (3.65-5.03) M/mm3 Hgb 12.6 (11.8-15.2) gm/dl Hct 36.9 (35.5-45.6) % MCV 85 (84-94) fl MCH 29 (28-32) pg MCHC 34 (32-34) % RDW 15.2 (13.2-15.2) % Plt Count 236 (140-440) K/mm3 Lymph % (Auto) 20.3 (13.4-35.0) % Jay % (Auto) 5.0 (0.0-7.3) % Eos % (Auto) 8.5 H (0.0-4.3) % Baso % (Auto) 0.4 (0.0-1.8) % Lymph # (Auto) 1.2 (1.2-5.4) K/mm3 Jay # (Auto) 0.3 (0.0-0.8) K/mm3 Eos # (Auto) 0.5 H (0.0-0.4) K/mm3 Baso # (Auto) 0.0 (0.0-0.1) K/mm3 Seg Neutrophils % 65.8 (40.0-70.0) % Seg Neutrophils # 4.0 (1.8-7.7) K/mm3 Sodium 136 L (137-145) mmol/L Potassium 3.9 (3.6-5.0) mmol/L Chloride 101.3 (98-107) mmol/L Carbon Dioxide 28 (22-30) mmol/L Anion Gap 11 mmol/L BUN 14 (9-20) mg/dL Creatinine 0.7 L (0.8-1.3) mg/dL Estimated GFR > 60 ml/min BUN/Creatinine Ratio 20 % Glucose 93 (75-100) mg/dL Calcium 8.7 (8.4-10.2) mg/dL Total Bilirubin 0.20 (0.1-1.2) mg/dL AST 12 (5-40) units/L ALT 7 (7-56) units/L Alkaline Phosphatase 83 (35-129) units/L Total Protein 7.2 (6.3-8.2) g/dL Albumin 4.0 (3.9-5) g/dL Albumin/Globulin Ratio 1.3 % Lipase 33 (13-60) units/L Urine Color (Yellow) Urine Turbidity (Clear) Urine pH (5.0-7.0) Ur Specific Lind[place] (1.003-1.030) Urine Protein (Negative) mg/dL Urine Glucose (UA) (Negative) mg/dL Urine Ketones (Negative) mg/dL Urine Blood (Negative) Urine Nitrite (Negative) Urine Bilirubin (Negative) Urine Urobilinogen (<2.0) mg/dL Ur Leukocyte Esterase (Negative) Urine WBC (Auto) (0.0-6.0) /HPF Urine RBC (Auto) (0.0-6.0) /HPF Urine Mucus /HPF / Range/Units Unknown WBC (4.5-11.0) K/mm3 RBC (3.65-5.03) M/mm3 Hgb (11.8-15.2) gm/dl Hct (35.5-45.6) % MCV (84-94) fl MCH (28-32) pg MCHC (32-34) % RDW (13.2-15.2) % Plt Count (140-440) K/mm3 Lymph % (Auto) (13.4-35.0) % Jay % (Auto) (0.0-7.3) % Eos % (Auto) (0.0-4.3) % Baso % (Auto) (0.0-1.8) % Lymph # (Auto) (1.2-5.4) K/mm3 Jay # (Auto) (0.0-0.8) K/mm3 Eos # (Auto) (0.0-0.4) K/mm3 Baso # (Auto) (0.0-0.1) K/mm3 Seg Neutrophils % (40.0-70.0) % Seg Neutrophils # (1.8-7.7) K/mm3 Sodium (137-145) mmol/L Potassium (3.6-5.0) mmol/L Chloride (98-107) mmol/L Carbon Dioxide (22-30) mmol/L Anion Gap mmol/L BUN (9-20) mg/dL Creatinine (0.8-1.3) mg/dL Estimated GFR ml/min BUN/Creatinine Ratio % Glucose (75-100) mg/dL Calcium (8.4-10.2) mg/dL Total Bilirubin (0.1-1.2) mg/dL AST (5-40) units/L ALT (7-56) units/L Alkaline Phosphatase (35-129) units/L Total Protein (6.3-8.2) g/dL Albumin (3.9-5) g/dL Albumin/Globulin Ratio % Lipase (13-60) units/L Urine Color Yellow (Yellow) Urine Turbidity Clear (Clear) Urine pH 5.0 (5.0-7.0) Ur Specific Lind[place] 1.027 (1.003-1.030) Urine Protein <15 mg/dl (Negative) mg/dL Urine Glucose (UA) Neg (Negative) mg/dL Urine Ketones Neg (Negative) mg/dL Urine Blood Neg (Negative) Urine Nitrite Neg (Negative) Urine Bilirubin Neg (Negative) Urine Urobilinogen 4.0 (<2.0) mg/dL Ur Leukocyte Esterase Neg (Negative) Urine WBC (Auto) 1.0 (0.0-6.0) /HPF Urine RBC (Auto) 1.0 (0.0-6.0) /HPF Urine Mucus 2+ /HPF - EKG Data -: EKG Interpreted by Me EKG shows normal: sinus rhythm Rate: normal - EKG Data 07/01/20 02:39 EKG interpreted at 01: 40 a.m. Sinus rhythm, 76 bpm, will axis, left ventricular hypertrophy, QTC 449 ms. This is an abnormal EKG. This is not a STEMI - Radiology Data Radiology results: report reviewed, image reviewed CT ABDOMEN AND PELVIS WITH CONTRAST HISTORY: Lower quadrant abdominal pain COMPARISON: None TECHNIQUE: Routine abdominal and pelvic CT exam performed following intravenous contrast administration.. All CT scans at this location are performed using CT dose reduction for [email or web address] by means of automated exposure control. FINDINGS: CT ABDOMEN: Lung Bases: No significant abnormality. Liver: Tiny areas of peripheral hyperattenuation in the lateral right hepatic lobe likely indicate transient hepatic attenuation alterations. Biliary: No significant abnormality. Spleen: No significant abnormality. Unenlarged. Pancreas: No significant abnormality. Adrenals: No significant abnormality. Kidneys: No acute findings. 2 cm simple cyst in the left kidney. Lymphatics: No lymphadenopathy. Vasculature: No significant abnormality. Bowel/Peritoneum: There is focal wall thickening and inflammatory change involving the mid sigmoid colon, which likely indicates diverticulitis. The inflammatory change extends to the dome of the bladder. There is also narrowing of the colonic lumen at the level of the wall thickening. Normal appendix. CT PELVIC: : No significant abnormality. Lymphatics: No lymphadenopathy. Osseous Structures: No aggressive appearing osseous lesions. Additional Findings: None IMPRESSION: 1. There is focal inflammatory change with associated wall thickening of the mid sigmoid colon as well as luminal narrowing. This most likely indicates diverticulitis. The area of inflammation extends to the bladder dome and I am concerned about possible early development of a colovesicular fistula, although there is no air in the bladder to suggest that the fistula is completed. Additionally, given the significant wall thickening and luminal narrowing, I am also concerned that this could potentially indicate an underlying colonic mass. Once the patient has been treated for diverticulitis, follow-up colonoscopy should be considered to evaluate for underlying colonic mass. Signer Name: Alfonso Root MD Signed: 04/07/2020 11:42 PM Workstation Name: [id number] CT ABDOMEN AND PELVIS WITH CONTRAST INDICATION: LLQ Abdominal pain CONTRAST: 100 cc Omnipaque 300 IV COMPARISON: 04/08/[address] scans at this location are performed using CT dose reduction for [email or web address] by means of automated exposure control. FINDINGS: A 5 mm noncalcified nodule is seen in the right upper lobe in an area not covered on the prior study. Lung bases otherwise are clear. No pneumoperitoneum is seen slight hyperdensity peripherally in the right lobe of the liver is unchanged and probably represents a small hemangioma. Similar hyperdense area is seen again in the dome of the diaphragm without change. Small cyst is seen in the left kidney again. No urinary obstructive changes are seen. No other masses are noted in the abdomen proper. Gallbladder and bile ducts appear within normal limits. Prostate is mildly enlarged. Moderate amount of stool is seen in nondilated colon. The area of sigmoid wall thickening and infl ammation on previous examination continues to be prominent with wall thickening seen. Less inflammatory change is seen in this area than on previous study. This continues to impinge moderately on the dome of the bladder similar to the prior study. I do not clearly see evidence of fistula and no gas is seen in the bladder with no increase in density of bladder contents noted. No definite diverticula are noted. Small bowel shows fluid filling but no dilatation. No evidence of perforation is seen. IMPRESSION: 1. Continued thickening of the mid sigmoid area as was seen in April though there is only minimal inflammation in this area now. I am significantly concerned this may represent a neoplastic process. Impingement on the dome of the bladder is again seen without obvious fistula. No perforation is obvious. Further investigation is suggested. 2. Small right upper lobe nodule. INCIDENTAL PULMONARY NODULE RECOMMENDATIONS Solid Nodule size* <6 mm -- Single or Multiple - Low Risk Patient: No routine follow-up - High Risk Patient: Optional CT at 12 months Note These recommendations do not apply to lung cancer screening, patients with immunosuppression, or patients with known primary cancer. Note Newly detected indeterminate nodule in persons 35 years of age or older. Persons under the age of 35 should not receive follow-up unless there is a known primary cancer. Low Risk Patient -- minimal or absent history of smoking and of other known risk factors. High Risk Patient -- history of smoking or of other known risk factors. *Dimensions are average of long and short axes, rounded to the nearest millimeter. Based on 2017 Fleischner Society Guidelines found in Radiology 2017 284:228-243. [email or web address] Signer Name: David Nowak MD Si gned: 07/01/2020 1:04 AM Workstation Name: [id number] - Medical Decision Making Differential diagnosis, including but not limited to: Colitis, diverticulitis, perforation, malignancy Assessment and plan: 50-year-old gentleman, presenting to the ER today with a recurrent complaint of suprapubic and left lower quadrant pain, urinary discomfort at the start and end of urination. The patient is afebrile with reassuring vital signs. Initially had a tender suprapubic and left lower quadrant region. Genital exam showed normal anatomy, without evidence of perennial ecchymosis, tenderness, crepitus, or abnormality. The patient has been celibate for 7 years, and specifically denies receptive and penetrative intercourse. He felt improved after appropriate medication, CT scan of the abdomen pelvis today suggest colonic malignancy, as opposed to acute infectious pathology. Incidental pulmonary nodule was noted as well. I had an extensive discussion with the patient regarding significance of CT scan findings, and need to very closely follow-up with outpatient gastroenterology, for urgent outpatient evaluation for colonoscopy and direct visualization and acquisition of tissue sample. He can follow-up with an outpatient primary care doctor or infectious disease specialist for reported history of HIV. Do not see indication for antibiotic therapy at this time, but will discharge patient with analgesia, Colace, antiemetics as needed, and return precautions. Patient articulated understanding. I also gave the patient copy of his CT scan reports. Critical care attestation.: If time is entered above; I have spent that time in minutes in the direct care of this critically ill patient, excluding procedure time. ED Disposition Clinical Impression: Abnormal CT of the abdomen, Pulmonary nodule, Lower abdominal pain Disposition: DC-01 TO HOME OR SELFCARE Is pt being admited?: No Does the pt Need Aspirin: No Condition: Stable Instructions: Incidental Abnormal Radiological Finding Additional Instructions: CT scan of the abdomen pelvis suggested nonspecific inflammation of the sigmoid colon, concerning for neoplasm, cancer, tumor, malignancy. Strongly recommend follow-up with an outpatient trust administrator as soon as possible, for outpatient evaluation for colonoscopy, visualization, and acquisition of tissue sample. It is very important to follow-up with an outpatient trust administrator as soon as possible, to have outpatient evaluation and scheduling of colonoscopy. Dr. Valdez is a local trust administrator. If patient is found to have colon cancer or any kind of cancer, neoplasm, malignancy, he will need to follow-up with an oncologist/business banking representative. Dr. Allen is a local hematology purchasing specialist. Patient should follow-up with a primary care doctor or infectious disease specialist within the next month, for maintenance of history of HIV, and general primary care. Dr. Salas is a local infectious disease specialist. Dr. Maza is a local primary care doctor. Please take the pain medication, nausea medication as needed and directed, minimize/avoid consumption of Motrin, ibuprofen, Naprosyn, Aleve. Do not take metformin medication for the next 2 days, if patient takes this medication. Please have a primary care doctor contact medical records department to follow- up on nonemergent incidental findings, including nonspecific colonic findings, and incidental pulmonary nodule. Please return to the emergency room right away with new pain, worsened pain, migration of pain, projectile vomiting, change in mental status, confusion, inability to tolerate liquid feeds, new, worsened or different symptoms not present on the initial emergency room evaluation. Prescriptions: Morphine Sulfate [Morphine Sulfate IR] 7.5 mg PO Q6HR PRN #10 tablet PRN Reason: Pain , Severe (7-10) Acetaminophen [Non-Aspirin Extra Strength] 500 mg PO Q6HR PRN #30 tablet PRN Reason: Pain , Severe (7-10) Ondansetron [Zofran Odt] 4 mg PO Q8HR PRN #20 tab.rapdis PRN Reason: Nausea Referrals: PRIMARY CAREMD [Primary Care Provider] - 3-5 Days JENARO ALLEN MD [Staff Physician] - 3-5 Days AMALIA VALDEZ MD [Staff Physician] - 3-5 Days MAEVE SALAS MD [Staff Physician] - 3-5 Days MITRA MAZA MD [Staff Physician] - 3-5 Days Forms: Work/School Release Form(ED)
--- NOTE | 2020-07-01 02:09 | Cat Scan Report ---
CT ABDOMEN AND PELVIS WITH CONTRAST INDICATION: LLQ Abdominal pain CONTRAST: 100 cc Omnipaque 300 IV COMPARISON: 04/08/[address] scans at this location are performed using CT dose reduction for ALARA by means of automated e xposure control. FINDINGS: A 5 mm noncalcified nodule is seen in the right upper lobe in an area not covered on the pr ior study. Lung bases otherwise are clear. No pneumoperitoneum is seen slight hyperdensity peripherally in the right lobe of the liver is unchan ged and probably represents a small hemangioma. Similar hyperdense area is seen again in the dome of the diaphragm without change. Small cyst is seen in the left kidney again. No urinary obstructive carlos nges are seen. No other masses are noted in the abdomen proper. Gallbladder and bile ducts appear wit hin normal limits. Prostate is mildly enlarged. Moderate amount of stool is seen in nondilated colon. The area of sigmoid wall thickening and inflamm ation on previous examination continues to be prominent with wall thickening seen. Less inflammatory change is seen in this area than on previous study. This continues to impinge moderately on the dome of the bladder similar to the prior study. I do not clearly see evidence of fistula and no gas is see n in the bladder with no increase in density of bladder contents noted. No definite diverticula are n oted. Small bowel shows fluid filling but no dilatation. No evidence of perforation is seen. IMPRESSION: 1. Continued thickening of the mid sigmoid area as was seen in April though there is only minimal inf lammation in this area now. I am significantly concerned this may represent a neoplastic process. Imp ingement on the dome of the bladder is again seen without obvious fistula. No perforation is obvious. Further investigation is suggested. 2. Small right upper lobe nodule. INCIDENTAL PULMONARY NODULE RECOMMENDATIONS Solid Nodule size* <6 mm -- Single or Multiple - Low Risk Patient: No routine follow-up - High Risk Patient: Optional CT at 12 months Note These recommendations do not apply to lung cancer screening, patients with immunosuppression, o r patients with known primary cancer. Note Newly detected indeterminate nodule in persons 35 years of age or older. Persons under the age of 35 should not receive follow-up unless there is a known primary cancer. Low Risk Patient -- minimal or absent history of smoking and of other known risk factors. High Risk Patient -- history of smoking or of other known risk factors. *Dimensions are average of long and short axes, rounded to the nearest millimeter. Based on 2017 Fleischner [employer] Guidelines found in Radiology 2017 284:228-243. https://doi.[email or web address] [email or web address]/radiol.[email or web address] Signer Name: David Nowak MD Signed: 07/01/2020 2:04 AM Workstation Name: [id number]
[2020-07-01 03:29] LABS: Mucus,Urine 2+ /HPF
[2020-07-01 03:30] VITALS: BP 108/74
[2020-07-01 03:30] LABS: Bilirubin,Urine NEG (Negative); Blood,Urine NEG (Negative); Color,Urine Yellow (Yellow); Protein,Urine <15 mg/dL mg/dL (Negative)
--- NOTE | 2020-07-01 10:43 | Electrocardiograph Report ---
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
== END 2020-07-01 03:05 | disposition home or self-care (01) ==
LOC: ED 20:29
DX: R93.5 Abnormal findings on diagnostic imaging of other abdominal regions, including retroperitoneum (principal); R10.32 Left lower quadrant pain; R91.1 Solitary pulmonary nodule; Z79.899 Other long term (current) drug therapy
CPT/HCPCS: 36415; 74177; 80053; 81001; 83690; 85025; 93005; 96361; 96374; 96375; 99284; J2270; J2405; J7030; Q9967